=== PATIENT | female | born 2000 | race Caucasian/White ===

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

== ENCOUNTER → 2022-05-17 | Outpatient (CLI) | payer BC ==
[2022-05-17 09:33] LABS: BASO % 0.5 % (0.0-1.0); EOS # 0.1 10*3/uL (0.0-0.4); EOS % 0.9 % (1.0-4.0); HEMATOCRIT 38.7 % (37.0-47.0); LYMPH # 1.6 10*3/uL (1.3-4.4); LYMPH % 21.1 % (27.0-41.0); MEAN CELL VOLUME 86.6 fl (81.0-99.0); MEAN CORPUSCULAR HGB 29.8 pg (27.0-31.0); MEAN CORPUSCULAR HGB CONC 34.4 g/dl (33.0-37.0); MEAN PLATELET VOLUME 10.1 fl (9.6-12.3); MONO # 0.5 10*3/uL (0.1-1.0); MONO % 5.9 % (3.0-9.0); NEUT # 5.6 10*3/uL (2.3-7.9); NEUT % 71.2 % (47.0-73.0); PLATELET COUNT AUTOMATED 227 10*3/uL (130-400); RED BLOOD COUNT 4.47 10*6/uL (4.10-5.10); RED CELL DISTRI WIDTH 13.4 % (0-14.5); WHITE BLOOD COUNT 7.8 10*3/uL (4.8-10.8)
[2022-05-17 09:52] LABS: ALKALINE PHOSPHATASE 37 U/L (46-116); BUN 5 mg/dl (9-23); CHLORIDE 104 mmol/L (98-107); FREE T4 1.18 ng/dl (0.89-1.76); LDH 144 U/L (120-246); POTASSIUM 3.8 mmol/L (3.4-5.1); SGPT/ALT 15 U/L (10-49); THYROID STIM HORMONE (HS) 2.135 uIU/ml (0.550-4.780); TOTAL PROTEIN 6.7 gm/dL (6.0-8.0); URIC ACID 2.7 mg/dL (3.1-7.8)
[2022-05-17 11:37] LABS: VITAMIN D, 25-HYDROXY 20.2 ng/mL (30-100)
[2022-05-17 14:50] LABS: BILIRUBIN Negative (Negative); BLOOD Negative (Negative); CLARITY Clear (Clear); COLOR Yellow (Yellow); GLUCOSE Negative (Negative); KETONE Negative (Negative); LEUKO ESTERASE Trace (Negative); NITRITE Negative (Negative); UROBILINOGEN 0.2 E.U./dl (0.0-1.0)
[2022-05-17 14:58] LABS: URINE CREATININE RANDOM 47.11 mg/dL
[2022-05-17 15:07] LABS: BACTERIA 1+
== END | disposition home or self-care (01) ==
LOC: LAB 08:44
PROVIDERS: ATTEND Obstetrics & Gynecology
DX: O99.341 Other mental disorders complicating pregnancy, first trimester (principal); F41.9 Anxiety disorder, unspecified; F32.A Depression, unspecified; Z3A.12 12 weeks gestation of pregnancy

== ENCOUNTER → 2022-07-05 | Outpatient (CLI) | payer BC ==
[2022-07-05 15:59] LABS: BASO % 0.4 % (0.0-1.0); EOS # 0.1 10*3/uL (0.0-0.4); EOS % 0.9 % (1.0-4.0); HEMATOCRIT 37.5 % (37.0-47.0); LYMPH # 1.2 10*3/uL (1.3-4.4); LYMPH % 11.9 % (27.0-41.0); MEAN CELL VOLUME 89.3 fl (81.0-99.0); MEAN CORPUSCULAR HGB CONC 34.7 g/dl (33.0-37.0); MEAN PLATELET VOLUME 9.9 fl (9.6-12.3); MONO # 0.7 10*3/uL (0.1-1.0); MONO % 6.3 % (3.0-9.0); NEUT # 8.3 10*3/uL (2.3-7.9); NEUT % 79.9 % (47.0-73.0); PLATELET COUNT AUTOMATED 259 10*3/uL (130-400); RED CELL DISTRI WIDTH 12.6 % (0-14.5); WHITE BLOOD COUNT 10.3 10*3/uL (4.8-10.8)
[2022-07-05 16:00] LABS: BILIRUBIN Negative (Negative); BLOOD Negative (Negative); CLARITY Clear (Clear); COLOR Yellow (Yellow); GLUCOSE Negative (Negative); KETONE Negative (Negative); LEUKO ESTERASE Negative (Negative); NITRITE Negative (Negative); SPECIFIC GRAVITY <= 1.005 (1.001-1.030); UROBILINOGEN 0.2 E.U./dl (0.0-1.0)
[2022-07-05 16:07] LABS: URINE CREATININE RANDOM 13.96 mg/dL
[2022-07-05 16:21] LABS: ALKALINE PHOSPHATASE 45 U/L (46-116); CHLORIDE 105 mmol/L (98-107); FREE T4 1.12 ng/dl (0.89-1.76); POTASSIUM 3.5 mmol/L (3.4-5.1); SGPT/ALT 16 U/L (10-49); THYROID STIM HORMONE (HS) 1.395 uIU/ml (0.550-4.780); TOTAL PROTEIN 6.2 gm/dL (6.0-8.0)
[2022-07-05 16:34] LABS: BUN < 5 mg/dl (9-23)
[2022-07-05 16:38] LABS: WBC 0-2 wbc/hpf (0-5)
[2022-07-05 16:53] LABS: VITAMIN D, 25-HYDROXY 33.6 ng/mL (30-100)
[2022-07-07 13:07] LABS: GEST AGE ON COLLECT 22.1 weeks (.); GESTATIONAL AGE BASED ON EDD (.); INSULIN DEPENDANT DIABETES No (.); MATERNAL AGE AT EDD 20.1 yr (.); MULTIPLE GESTATION No (.); OSBR RISK 1278 (.); RACE Caucasian (.); TEST RESULTS *Screen Negative* (.); WEIGHT 144 lbs (.)
== END | disposition home or self-care (01) ==
LOC: LAB 15:15
PROVIDERS: ATTEND Obstetrics & Gynecology
DX: O09.892 Supervision of other high risk pregnancies, second trimester (principal); O26.11 Low weight gain in pregnancy, first trimester; O99.891 Other specified diseases and conditions complicating pregnancy; O99.340 Other mental disorders complicating pregnancy, unspecified trimester; R82.71 Bacteriuria; R79.89 Other specified abnormal findings of blood chemistry; F41.9 Anxiety disorder, unspecified; R79.0 Abnormal level of blood mineral

== ENCOUNTER → 2023-06-05 | Outpatient (CLI) | payer BC | END | disposition home or self-care (01) | LOC: US 10:00 | PROVIDERS: ATTEND Nurse Practitioner Family | DX: R16.1 Splenomegaly, not elsewhere classified (principal) ==

== ENCOUNTER → 2025-02-13 | Outpatient (CLI) | payer BC | END | disposition home or self-care (01) | LOC: US 14:12 | PROVIDERS: ATTEND Nurse Practitioner Family | DX: N93.9 Abnormal uterine and vaginal bleeding, unspecified (principal); R10.31 Right lower quadrant pain ==

== ENCOUNTER → 2025-03-24 | Outpatient (CLI) | payer BC | END | disposition home or self-care (01) | LOC: US 14:11 | PROVIDERS: ATTEND Nurse Practitioner Family | DX: N83.209 Unspecified ovarian cyst, unspecified side (principal) ==